=== PATIENT | female | born 1995 | race Caucasian/White ===

== ENCOUNTER 2016-04-05 21:48 | Emergency (ER) | payer OTHER ==
[2016-04-05 21:56] VITALS: BP 123/70; PULSE 109; RESP 16; TEMP 98.5
--- NOTE | 2016-04-05 22:16 | ED ---
General Adult HPI - General Chief complaint: Nausea/Vomiting/Diarrhea Stated complaint: Abd Pain/Vomiting Source: patient Mode of arrival: ambulatory Limitations: no limitations - History of Present Illness Initial comments: Patient is a 21-year-old female who presents for evaluation for mild nonproductive cough, chills, nausea, congestion over the last 24 hours. Past medical history of ADHD and bipolar disorder not currently on any medications. She stated that she came into contact with a younger family member with similar symptoms and believes that she caught the symptoms. She states "I have a cold" . Patient stated that she did not want to come here. She states that the only reason she is here is to "get a work note ". She denies any fever, headaches, changes of vision, shortness of breath, chest pain, vomiting, diarrhea, pain or burning with urination. She denies any abdominal pain. Her last measured cycle was in January which is normal for her. She took 2 home tests which were both negative. She has a primary care physician in which she can follow-up with. - Related Data Home Medications Medication Instructions Recorded Confirmed No Known Home Medications [No 10/08/15 04/05/16 Known Home Medications] Allergies Allergy/AdvReac Type Severity Reaction Status Date / Time No Known Allergies Allergy Verified 04/05/16 21:55 Review of Systems ROS Statement: Those systems with pertinent positive or pertinent negative responses have been documented in the HPI. ROS Other: All systems not noted in ROS Statement are negative. Past Medical History Past Medical History: No Reported History History of Any Multi-Drug Resistant Organisms: None Reported Past Surgical History: No Surgical Hx Reported Additional Past Surgical History / Comment(s): left eye lid Past Psychological History: ADD/ADHD, Bipolar, Depression Smoking Status: Current some day smoker Past Alcohol Use History: None Reported Past Drug Use History: None Reported General Exam Limitations: no limitations General appearance: alert, in no apparent distress, other (Nontoxic appearing) Head exam: Present: atraumatic, normocephalic, normal inspection Eye exam: Present: normal appearance, PERRL, EOMI. Absent: scleral icterus, conjunctival injection, periorbital swelling ENT exam: Present: normal exam, mucous membranes moist, other (Moist mucous membranes. Bilateral tonsillar swelling without exudates.) Neck exam: Present: normal inspection, other (No cervical lymphadenopathy). Absent: tenderness, meningismus, lymphadenopathy Respiratory exam: Present: normal lung sounds bilaterally, other (Clear bilaterally without wheezes rales or rhonchi.). Absent: respiratory distress, wheezes, rales, rhonchi, stridor Cardiovascular Exam: Present: regular rate, normal rhythm, normal heart sounds, other (Normal S1 and S2. No murmurs. Heart rate at 78. Distal pulses intact). Absent: systolic murmur, diastolic murmur, rubs, gallop, clicks GI/Abdominal exam: Present: soft, normal bowel sounds, other (Abdomen is soft and nontender. No peritoneal signs. No point tenderness at McBurney sign.). Absent: distended, tenderness, guarding, rebound, rigid Extremities exam: Present: normal inspection, full ROM, normal capillary refill. Absent: tenderness, pedal edema, joint swelling, calf tenderness Back exam: Present: normal inspection Neurological exam: Present: alert, oriented X3, CN II-XII intact Psychiatric exam: Present: normal affect, normal mood Skin exam: Present: warm, dry, intact, normal color. Absent: rash Course Vital Signs 04/05/16 21:51 Temperature 98.5 F Pulse Rate 109 H Respiratory 16 Rate Blood Pressure 123/70 O2 Sat by Pulse 96 Oximetry Medical Decision Making - Medical Decision Making Patient presents for evaluation for congestion, nonproductive cough, sore throat , chills over the last 24 hours. Patient states that she came here for "a work note ". She is refusing any medical testing at this time. She states that "I know what I have ". She states that "my boyfriend made me come". And again repeated "I just want a work note ". Based on her history and physical examination, her symptoms do fit with a viral illness at this time. Discussed that I would get an influenza test, urinalysis, urine test. She again reiterated that she refuses all testing. Discussed my inability to fully evaluate her without performing any tests and she voiced understanding. I encouraged her to follow-up with her primary care physician. Specialist since she does have tonsillar swelling. Encouraged Tylenol and Motrin as needed for body aches, fevers. Discussed signs and symptoms on when to return to the emergency department for further evaluation. Comfortable with discharge home and will follow-up. Disposition Clinical Impression: Viral illness, Enlarged tonsils Disposition: HOME SELF-CARE Condition: Good Instructions: Viral Syndrome (ED) Referrals: None,Stated [Primary Care Provider] - 1-2 days Alee Villanueva MD [REFERRING] - 1-2 days
== END 2016-04-05 22:21 | disposition home or self-care (01) ==
LOC: EC 21:48
DX: B34.9 Viral infection, unspecified (principal); R11.2 Nausea with vomiting, unspecified; J35.1 Hypertrophy of tonsils; F17.200 Nicotine dependence, unspecified, uncomplicated
CPT/HCPCS: 99283

== ENCOUNTER 2016-12-22 17:06 | Emergency (ER) | payer OTHER ==
[2016-12-22 17:22] VITALS: RESP 18
[2016-12-22 18:26] LABS: Appearance,Urine Cloudy (Clear); Bacteria,Urine Few /hpf; Bilirubin,Urine Negative (Negative); Glucose,Urine (UA) Negative (Negative); Ketones,Urine Negative (Negative); Leukocyte Esterase,Urine Negative (Negative); Mucus,Urine Occasional /hpf; Nitrite,Urine Negative (Negative); Particle Count 7896; Protein,Urine Trace (Negative); RBC,Urine 2 /hpf (0-5); Specific Gravity,Urine 1.028 (1.001-1.035); Squamous Epithelial Cell,Urine 10 /hpf (0-4); UA Billing (MACRO vs. MICRO) MICRO; Urobilinogen,Urine <2.0 mg/dL (<2.0); WBC,Urine 6 /hpf (0-5)
--- NOTE | 2016-12-22 18:27 | ED ---
General Adult HPI - General Chief complaint: Abdominal Pain Stated complaint: Abd.pain Time Seen by Provider: 12/22/16 17:53 Source: patient, RN notes reviewed Mode of arrival: ambulatory Limitations: no limitations - History of Present Illness Initial comments: Patient 21-year-old female who presents emergency room today with a chief complaint of some right-sided abdominal pain on and off over the last 2 days. She does admit that she's had an upper respiratory infection. She was at urgent care a few days ago and when they palpated her abdomen that it felt like her appendix could be swollen. They're advised her if she was not having any pain at that time that if she experienced any pain or discomfort in the abdomen that she should come to the hospital for dilation. Patient states that she began feeling some discomfort 2 days ago. She states the pain comes and goes. She states it's worse with movements when she is up moving around. She does admit to a cough congestion. She states the upper respiratory symptoms have improved with medications. She denies any other complaints or symptoms at this time. Patient denies any recent fever, chills, shortness of breath, chest pain, back pain, nausea or vomiting, numbness or tingling, dysuria or hematuria, constipation or diarrhea, headaches or visual changes, or any other complaints. - Related Data Home Medications Medication Instructions Recorded Confirmed No Known Home Medications [No 10/08/15 12/22/16 Known Home Medications] Allergies Allergy/AdvReac Type Severity Reaction Status Date / Time No Known Allergies Allergy Verified 12/22/16 17:53 Review of Systems ROS Statement: Those systems with pertinent positive or pertinent negative responses have been documented in the HPI. ROS Other: All systems not noted in ROS Statement are negative. Past Medical History Past Medical History: No Reported History History of Any Multi-Drug Resistant Organisms: None Reported Past Surgical History: No Surgical Hx Reported Additional Past Surgical History / Comment(s): left eye lid Past Psychological History: ADD/ADHD, Bipolar, Depression Smoking Status: Current some day smoker Past Alcohol Use History: None Reported Past Drug Use History: None Reported General Exam - General Exam Comments Initial Comments: General: The patient is awake and alert, in no distress, and does not appear acutely ill. Eye: Pupils are equal, round and reactive to light, extra-ocular movements are intact. No nystagmus. There is normal conjunctiva bilaterally. No signs of icterus. Ears, nose, mouth and throat: There are moist mucous membranes and no oral lesions. Neck: The neck is supple, there is no tenderness or JVD. Cardiovascular: There is a regular rate and rhythm. No murmur, rub or gallop is appreciated. Respiratory: Lungs are clear to auscultation, respirations are non-labored, breath sounds are equal. No wheezes, stridor, rales, or rhonchi. Gastrointestinal: Soft, non-distended, non-tender abdomen without masses or organomegaly noted. There is no rebound or guarding present. No CVA tenderness. Bowel sounds are unremarkable. Musculoskeletal: Normal ROM, no tenderness. Strength 5/5. Sensation intact. Pulses equal bilaterally 2+. Neurological: A&O x 3. CN II-XII intact, There are no obvious motor or sensory deficits. Coordination appears grossly intact. Speech is normal. Skin: Skin is warm and dry and no rashes or lesions are noted. Psychiatric: Cooperative, appropriate mood & affect, normal judgment. Limitations: no limitations Course Vital Signs 12/22/16 17:21 Temperature 98.5 F Pulse Rate 83 Respiratory 18 Rate Blood Pressure 104/57 O2 Sat by Pulse 97 Oximetry Medical Decision Making - Medical Decision Making Patient's currently being treated for an upper respiratory infection is on steroids. Patient's has abdominal pain off-and-on. It is worse with movements. Marion that this could be musculoskeletal. Long conversation have patient about options of blood work. The emergency room. Advised her that due to the steroids would have an elevated white count and blood work may not help us to rule out possible appendicitis. Was discussed that we may need to do a CAT scan. At this time she states she feels comfortable holding lab work and does not have CT. States that she will return if symptoms increase worsen or for any other concerns. - Lab Data Lab Results 12/22/16 12/22/16 Range/Units 18:17 18:17 Urine Color Yellow Urine Appearance Cloudy H (Clear) Urine pH 6.0 (5.0-8.0) Ur Specific [place] 1.028 (1.001-1.035) Urine Protein Trace H (Negative) Urine Glucose (UA) Negative (Negative) Urine Ketones Negative (Negative) Urine Blood Negative (Negative) Urine Nitrite Negative (Negative) Urine Bilirubin Negative (Negative) Urine Urobilinogen <2.0 (<2.0) mg/dL Ur Leukocyte Esterase Negative (Negative) Urine RBC 2 (0-5) /hpf Urine WBC 6 H (0-5) /hpf Ur Squamous Epith Cells 10 H (0-4) /hpf Urine Bacteria Few H (None) /hpf Urine Mucus Occasional H (None) /hpf Urine HCG, Qual Not Detected (Not Detectd) Disposition Clinical Impression: Abdominal pain Disposition: HOME SELF-CARE Condition: Good Instructions: Abdominal Pain (ED) Additional Instructions: Please use medication as discussed. Please follow-up with family doctor in the next 2 days of symptoms have not improved. Please return to emergency room if the symptoms increase or worsen or for any other concerns. Referrals: None,Stated [Primary Care Provider] - 1-2 days Time of Disposition: 18:40
[2016-12-22 18:51] VITALS: BP 133/71; PULSE 71; TEMP 97.6
== END 2016-12-22 18:53 | disposition home or self-care (01) ==
LOC: EC 17:06
DX: R10.9 Unspecified abdominal pain (principal); R05 Cough; R09.81 Nasal congestion; F17.200 Nicotine dependence, unspecified, uncomplicated
CPT/HCPCS: 81001; 81025; 87086; 99284

== ENCOUNTER 2017-12-20 16:40 | Emergency (ER) | payer OTHER ==
[2017-12-20 16:53] VITALS: TEMP 97.9
[2017-12-20 18:06] LABS: Appearance,Urine Cloudy (Clear); Bacteria,Urine Rare /hpf; Bilirubin,Urine Negative (Negative); Blood,Urine Negative (Negative); Color,Urine Yellow; Glucose,Urine (UA) Negative (Negative); Ketones,Urine Negative (Negative); Leukocyte Esterase,Urine Negative (Negative); Mucus,Urine Few /hpf; Nitrite,Urine Negative (Negative); PH, Urine 5.5 (5.0-8.0); Protein,Urine Negative (Negative); RBC,Urine 1 /hpf (0-5); Specific Gravity,Urine 1.016 (1.001-1.035); Squamous Epithelial Cell,Urine 11 /hpf (0-4); Urobilinogen,Urine <2.0 mg/dL (<2.0)
[2017-12-20] MEDS ORDERED: KETOROLAC 60 MG/2 ML VIAL IM STA (18:35)
--- NOTE | 2017-12-20 19:06 | XR ---
Lumbar spine HISTORY: Back pain 3 views of the lumbar spine Lumbar vertebral bodies show preserved height, alignment, and bone mineralization. Disc spaces are ma intained. No paraspinal mass. Slight spinal curvature could be positional. IMPRESSION: No acute abnormality is evident. Lumbar MRI may be of benefit.
--- NOTE | 2017-12-20 19:07 | XR ---
Thoracic spine HISTORY: Back pain 3 views of the thoracic spine There is a dextroscoliosis centered at approximately T7. Thoracic vertebral bodies show preserved hei ght and bone mineralization. Disc spaces are maintained. IMPRESSION: Scoliosis.
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
[2017-12-20 19:55] VITALS: BP 112/89; PULSE 90; RESP 19
--- NOTE | 2017-12-20 23:47 | ED ---
Medical Decision Making - Medical Decision Making Patient had a complaint of lightheadedness due to pain while walking approximately 3 times the last week. Patient did not have a loss of consciousness. Patient not having heart palpitations. Patient felt that it was the pain that is making her dizzy. Patient does not have a history of syncopized. Patient did not have any chest pain or shortness of breath when this occurred. An EKG was conducted by displayed normal sinus rhythm. Patient encouraged to return to ED if the symptoms return. - Lab Data Lab Results 12/20/17 12/20/17 Range/Units 17:48 17:48 Urine Color Yellow Urine Appearance Cloudy H (Clear) Urine pH 5.5 (5.0-8.0) Ur Specific [place] 1.016 (1.001-1.035) Urine Protein Negative (Negative) Urine Glucose (UA) Negative (Negative) Urine Ketones Negative (Negative) Urine Blood Negative (Negative) Urine Nitrite Negative (Negative) Urine Bilirubin Negative (Negative) Urine Urobilinogen <2.0 (<2.0) mg/dL Ur Leukocyte Esterase Negative (Negative) Urine RBC 1 (0-5) /hpf Urine WBC 2 (0-5) /hpf Ur Squamous Epith Cells 11 H (0-4) /hpf Urine Bacteria Rare H (None) /hpf Urine Mucus Few H (None) /hpf Urine HCG, Qual Not Detected (Not Detectd) - EKG Data -: EKG Interpreted by Me EKG Comments: Normal sinus rhythm. Ventricular rate 78. MD interval 118. QRS duration 84. QT 362/412. Disposition Clinical Impression: Lumbar back pain Disposition: HOME SELF-CARE Condition: Good Instructions: Acute Low Back Pain (ED), Chronic Back Pain (ED) Additional Instructions: Patient to adhere to previously discussed treatment plan and will take medication(s) as directed. Patient to follow up with PCP in 1-2 days. Patient to return to ED if symptoms do not improve. Prescriptions: Cyclobenzaprine [Flexeril] 1 - 2 tab PO TID #20 tablet Ibuprofen [Motrin] 600 mg PO Q6HR PRN #40 day PRN Reason: Pain Is patient prescribed a controlled substance at d/c from ED?: No Referrals: Rosy Garcia MD [Primary Care Provider] - 1-2 days
== END 2017-12-20 19:39 | disposition home or self-care (01) ==
LOC: EC 16:40
DX: M54.5 Low back pain (principal); M54.6 Pain in thoracic spine; R42 Dizziness and giddiness; F17.200 Nicotine dependence, unspecified, uncomplicated
CPT/HCPCS: 93005; 81001; 81025; 72070; 72100; 99284; 96372; J1885